=== PATIENT | female | born 2005 | race African-American/Black ===

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

== ENCOUNTER 2023-08-13 15:36 | Emergency (ER) | payer MEDICAID ==
[~2023-08-13] VITALS: Ht 160 cm; Wt 57.0 kg
[2023-08-13 15:38] VITALS: O2SAT 100
[2023-08-13] MEDS ORDERED: LIDOCAINE HCL/EPINEPHRINE 1%-EPI 1:100,000 20 ML VIAL INFIL ONE (15:45)
[2023-08-13] MEDS: LIDOCAINE HCL/EPINEPHRINE 1%-EPI 1:100,000 20 ML VIAL INFIL NR (19:00)
[2023-08-13] MEDS: HYDROCODONE/ACETAMINOPHEN 5/325MG TABLET PO ONE (19:05)
[2023-08-13] MEDS: TETANUS, DIPHTHERIA, PERTUSSIS VAC/PF 0.5ML (>10YR OLD) IM ONE (19:07)
[2023-08-13 19:59] VITALS: BP 144/70; PULSE 86; RESP 16; TEMP 98
== END 2023-08-13 20:02 | disposition home or self-care (01) ==
LOC: ER 15:36
DX: S01.01XA Laceration without foreign body of scalp, initial encounter (principal); Y08.89XA Assault by other specified means, initial encounter; Y93.89 Activity, other specified; Y92.89 Other specified places as the place of occurrence of the external cause; Y99.8 Other external cause status
CPT/HCPCS: 99283; 81025; 90715; 12002; 90471; J3490

== ENCOUNTER 2024-05-12 11:58 | Emergency (ER) | payer MEDICAID ==
[~2024-05-12] VITALS: Ht 149.9 cm; Wt 52.5 kg
[2024-05-12 12:04] VITALS: O2SAT 98
[2024-05-12 12:09] VITALS: TEMP 36.8; O2SAT 100
[2024-05-12 14:33] VITALS: BP 120/71; PULSE 69; RESP 18
[2024-05-12] MEDS: KETOROLAC 30MG/ML VIAL IM ONE (14:33)
[2024-05-12 14:43] LABS: CLARITY URINE CLOUDY (CLEAR); COLOR URINE YELLOW (YELLOW); GLUCOSE URINE NEGATIVE (NEGATIVE); KETONES URINE NEGATIVE (NEGATIVE); LEUKOCYTE ESTERASE URINE NEGATIVE (NEGATIVE); NITRITE URINE NEGATIVE (NEGATIVE); OCCULT BLOOD URINE NEGATIVE (NEGATIVE); PH URINE 7.5 (4.5-8.0); PROTEIN URINE NEGATIVE (NEGATIVE); SPECIFIC GRAVITY URINE 1.024 (1.005-1.030); UROBILINOGEN URINE 0.2 E.U./dL (0.2-1.0)
[2024-05-12 15:02] LABS: MUCUS URINE TRACE /lpf (< = 2+)
[2024-05-12 15:03] LABS: BACTERIA URINE 2+; SQUAMOUS EPITHELIAL CELL URINE 3+ /lpf (RARE/1+)
[2024-05-12 15:05] LABS: RBC URINE 0-2 /hpf (0-2); WBC URINE 0-2 /hpf (0-2)
[2024-05-12] MEDS ORDERED: METR-167 MT (16:04)
[2024-05-12] MEDS ORDERED: DOXY100C5 MT (16:04)
[2024-05-12] MEDS ORDERED: SENN-139 MT (16:04)
[2024-05-12] MEDS ORDERED: POLY17PO3 MT (16:04)
[2024-05-12] MEDS ORDERED: IBUP-2029 MT (16:06)
[2024-05-12] MEDS ORDERED: LIDO35.421 TP (16:06)
[2024-05-12] MEDS: CEFTRIAXONE SODIUM 500MG VIAL IM ONE (16:27)
== END 2024-05-12 16:28 | disposition home or self-care (01) ==
LOC: ER 11:58
DX: K62.89 Other specified diseases of anus and rectum (principal); L29.9 Pruritus, unspecified; N39.0 Urinary tract infection, site not specified
CPT/HCPCS: 87491; 87591; 81003; 81025; 87086; 96372; 99284; J0696; J1885; Z7610

== ENCOUNTER 2025-01-14 15:26 | Emergency (ER) | payer MEDICAID ==
[~2025-01-14] VITALS: Ht 170.2 cm; Wt 63.0 kg
[~2025-01-14 15:26] MED LIST changes: -IBUP-2030 MT; +LEVO-65 PO; +METR-167 MT; +MYL30 PO; +PANT20TA17 PO; +PHOS250T3 MT; +POTA-205 PO
[2025-01-14 15:29] VITALS: O2SAT 100
[2025-01-14 16:09] LABS: BASOPHILS % 0.3 % (0.0-2.0); EOSINOPHILS % 0.3 % (0.0-5.0); HEMATOCRIT. 40.7 % (36.0-48.0); HEMOGLOBIN. 13.7 g/dL (12.0-16.0); LYMPHOCYTES % 23.0 % (20.0-50.0); MONOCYTES % 6.5 % (2.0-8.0); NEUTROPHILS % 69.9 % (40.0-76.0); RED BLOOD CELL COUNT 5.14 mill/uL (4.2-5.4); RED CELL DISTRIBUTION WIDTH 13.4 % (11.6-14.6)
[2025-01-14 16:22] LABS: CREATININE 0.8 mg/dL (0.6-1.0); UREA NITROGEN BLOOD 7 mg/dL (9-23)
[2025-01-14 16:23] LABS: PROTEIN TOTAL 7.4 g/dL (6.0-8.3)
[2025-01-14 16:24] LABS: ASPARTATE AMINOTRANSFERASE 25 IU/L (<34); BILIRUBIN DIRECT 0.3 mg/dL (<=3.0); BILIRUBIN TOTAL 0.8 mg/dL (0.1-1.0)
[2025-01-14] MEDS: ONDANSETRON 4MG ODT PO NR (16:25)
[2025-01-14] MEDS: ACETAMINOPHEN 325MG TABLET PO NR (16:25)
[2025-01-14 17:01] LABS: HCG SCREEN NEGATIVE
[2025-01-14 17:06] LABS: COLOR URINE YELLOW (YELLOW); GLUCOSE URINE NEGATIVE (NEGATIVE); KETONES URINE 4+ (NEGATIVE); LEUKOCYTE ESTERASE URINE NEGATIVE (NEGATIVE); NITRITE URINE NEGATIVE (NEGATIVE); OCCULT BLOOD URINE 2+ (NEGATIVE); PH URINE 6.0 (4.5-8.0); PROTEIN URINE 1+ (NEGATIVE); SPECIFIC GRAVITY URINE 1.029 (1.005-1.030); UROBILINOGEN URINE 0.2 E.U./dL (0.2-1.0)
[2025-01-14 17:28] LABS: MEAN PLATELET VOLUME 9.9 fl (7.4-10.4); PLATELET 138 x1000/uL (130-400)
[2025-01-14] MEDS: HALOPERIDOL LACTATE 5MG/ML VIAL IM ONE (18:07)
[2025-01-14 18:10] VITALS: BP 135/58; PULSE 62; RESP 15; O2SAT 100
[2025-01-14 18:35] LABS: CLARITY URINE SL HAZY (CLEAR)
[2025-01-14 18:51] LABS: BACTERIA URINE TRACE; MUCUS URINE 1+ /lpf (< = 2+); SQUAMOUS EPITHELIAL CELL URINE 2+ /lpf (RARE/1+); WBC URINE 0-2 /hpf (0-2)
[2025-01-14] MEDS: POTASSIUM CHLORIDE 20MEQ TABLET SR PO ONE (20:10)
[2025-01-14] MEDS: MORPHINE SULFATE 4 MG/ML INJ (FOR IV/IM USE) IM ONE (21:27)
[2025-01-14] MEDS ORDERED: ACET-2708 MT (23:46)
[2025-01-14] MEDS ORDERED: IBUP-2028 MT (23:48)
== END 2025-01-15 00:37 | disposition home or self-care (01) ==
LOC: ER 15:26
DX: R11.2 Nausea with vomiting, unspecified (principal); N83.202 Unspecified ovarian cyst, left side; Z79.899 Other long term (current) drug therapy
CPT/HCPCS: 99285; 74176; 76830; 76856; 80076; 80048; 81003; 81025; 84703; 83690; 85025; 36415; 96372; Q0162; J1630; J2270